=== PATIENT | male | born 1950 | race Hispanic/Latino ===

== ENCOUNTER 2023-10-10 08:04 | Outpatient (CLI) | payer MEDICARE | END 2023-10-10 08:05 | disposition home or self-care (01) | LOC: BICCT 08:04 | PROVIDERS: ATTEND Family Medicine | DX: R10.9 Unspecified abdominal pain (principal); K76.9 Liver disease, unspecified | CPT/HCPCS: 74178 ==

== ENCOUNTER 2024-03-30 09:45 | Outpatient (CLI) | payer MEDICARE ==
[~2024-03-30 09:45] MED LIST: Iopamidol 370 76% 100 ML VIAL ONE
== END 2024-03-30 09:46 | disposition home or self-care (01) ==
LOC: BICCT 09:45 → BICRAD 09:46
PROVIDERS: ATTEND Family Medicine
DX: K76.89 Other specified diseases of liver (principal); M47.816 Spondylosis without myelopathy or radiculopathy, lumbar region; M48.061 Spinal stenosis, lumbar region without neurogenic claudication
CPT/HCPCS: 74178; 82565; Q9967

== ENCOUNTER 2024-04-12 08:32 | Emergency (ER) | payer MEDICARE ==
[2024-04-12] MEDS ORDERED: Dexamethasone 10 MG/ML VIAL ONE (09:15)
== END 2024-04-12 09:55 | disposition home or self-care (01) ==
LOC: ERS 08:32
DX: J22 Unspecified acute lower respiratory infection (principal); E11.9 Type 2 diabetes mellitus without complications; I10 Essential (primary) hypertension; Z79.84 Long term (current) use of oral hypoglycemic drugs
CPT/HCPCS: 71045; J1100

== ENCOUNTER 2025-02-24 08:15 | Outpatient (CLI) | payer OTHER | END 2025-02-24 08:16 | disposition home or self-care (01) | LOC: SCSMRI 08:15 | PROVIDERS: ATTEND Family Medicine | DX: M25.511 Pain in right shoulder (principal); S46.911A Strain of unspecified muscle, fascia and tendon at shoulder and upper arm level, right arm, initial encounter; M19.011 Primary osteoarthritis, right shoulder ==